=== PATIENT | female | born 1985 | race Caucasian/White ===

== ENCOUNTER 2020-08-14 05:52 | Day surgery (SDC) | payer BC, OTHER ==
[2020-08-14] VITALS (9 sets, daily range): BP systolic 96–122; BP diastolic 58–77
[~2020-08-14] VITALS: Ht 165.1 cm; Wt 59.0 kg
[2020-08-14] MEDS ORDERED: fentaNYL 100 mcg/2 mL IV PRN (06:30)
[2020-08-14] MEDS ORDERED: Atropine Inj 1mg/10ml Syr IVP PRN (06:30)
[2020-08-14] MEDS ORDERED: DiphenhydrAMINE 50mg/ml Inj IVP PRN (06:30)
[2020-08-14] MEDS ORDERED: Midazolam 2mg/2ml Inj IVP PRN (06:30)
[2020-08-14] MEDS ORDERED: LR 1000ml ONE (06:30)
[2020-08-14] MEDS ORDERED: Lidocaine 1% MPF 10mg/ml 5ml ONE (06:30)
[2020-08-14] MEDS ORDERED: LOESTRIN1 EAC1 PO (06:31)
[2020-08-14] MEDS ORDERED: SERTRALINE HCL50 MG ORAL (06:31)
[2020-08-14] MEDS ORDERED: OMEPRAZOLE40 M1 ORAL (06:31)
[2020-08-14] MEDS ORDERED: ATENOLOL25 MG ORAL (06:31)
[2020-08-14] MEDS ORDERED: BUSPAR10 MG ORAL (06:31)
--- NOTE | 2020-08-14 06:34 | Anethesia Preoperative Eval ---
Anesthesia Pre-op PMH/ROS General Date of Evaluation: Aug 14, 2020 Time of Evaluation: 06:32 Anesthesiologist: alan ASA Score: ASA 3 Mallampati Score Class I : Soft palate, uvula, fauces, pillars visible Class II: Soft palate, uvula, fauces visible Class III: Soft palate, base of uvula visible Class IV: Only hard plate visible Mallampati Classification: Class II Surgeon: lolis Diagnosis: gerd Surgical Procedure: egd Anesthesia History: none Social History: smoking - former Family History: no anesthesia problems Allergies: Coded Allergies: No Known Allergies (Unverified , 08/14/20) Medications: see eMAR Patient NPO?: Yes Past Medical History Cardiovascular: Reports: HTN, arrhythmia Gastrointestinal/Genitourinary: Reports: GERD, other - on bcp Neurologic/Psychiatric: Reports: depression/anxiety, other - hx/o seizures Anesthesia Pre-op Phys. Exam Physician Exam Last Vital Signs Date Time Temp Pulse Resp B/P (MAP) Pulse Ox O2 Delivery O2 Flow Rate FiO2 08/14/20 06:28 Room Air Constitutional: NAD Neurologic: CN 2-12 intact Cardiovascular: RRR Respiratory: CTA Gastrointestinal: S/NT/ND Airway Exam Mallampati Score: Class II MO: full Neck: flexible TMD: 2fb ROM: full Anesthesia Pre-op A/P Labs Microbiology Date/Time Source Procedure Growth Status 08/11/20 10:50 Nasopharynx SARS-CoV-2 RdRp Gene Assay - Final Complete Labs Test 08/14/20 06:15 Urine HCG, Qualitative Negative (NEGATIVE) Risk Assessment & Plan Assessment: asa3 Plan: mac Status Change Before Surgery: No Pre-Antibiotics Drug: Cathryn Luque MD Aug 14, 2020 06:34
--- NOTE | 2020-08-14 07:11 | Pre-Procedure Note/Attestation ---
Pre-Procedure Note/Attestation Complete Prior to Procedure Planned Procedure: not applicable Procedure Narrative: egd Indications for Procedure Pre-Operative Diagnosis: gerd Attestation I attest that I discussed the nature of the procedure; its benefits; risks and complications; and alternatives (and the risks and benefits of such alternatives), prior to the procedure, with the patient (or the patient's legal sales representative). I attest that, if there was a reasonable possibility of needing a blood transfusion, the patient (or the patient's legal sales representative) was given the [facility] standardized written summary, pursuant to the Derek Jacoby Blood Safety Act ([place] Health and Safety Code # 1645, as amended). I attest that I re-evaluated the patient just prior to the surgery and that there has been no change in the patient's H&P, except as documented below: Bill Oviedo MD Aug 14, 2020 07:11
--- NOTE | 2020-08-14 07:12 | Short Stay Surgery H&P ---
History of Present Illness History of Present Illness Chief Complaint see H&P HPI Pily Leidy Anderson is a 35 year old female who was admitted on for GERD Patient History Allergies: Coded Allergies: No Known Allergies (Unverified , 08/14/20) Medication History Scheduled Atenolol* (Tenormin*), 25 MG ORAL DAILY, (Reported) Buspirone Hcl* (Buspar*), 10 MG ORAL BID, (Reported) Norethindrone A-E Estradiol (Loestrin), 1 EACH PO DAILY, (Reported) Omeprazole (Omeprazole), 40 MG ORAL DAILY, (Reported) Sertraline Hcl* (Zoloft*), 50 MG ORAL DAILY, (Reported) Physical Exam Vital Signs Last Vital Signs Date Time Temp Pulse Resp B/P (MAP) Pulse Ox O2 Delivery O2 Flow Rate FiO2 08/14/20 06:36 97.8 68 18 122/71 99 Room Air Labs Laboratory Tests Test 08/14/20 06:15 Urine HCG, Qualitative Negative (NEGATIVE) Plan Attestation Are the patient's medical conditions optimized for surgery? Bill Oviedo MD Aug 14, 2020 07:12
--- NOTE | 2020-08-14 07:41 | Endoscopy Procedure Note ---
Endoscopy Procedure Note General Indication for Procedure: GERD Eructation Procedures Performed: EGD Operative Findings/Diagnosis: 1-2 cm HH, gastric polyps - one red, RND bx Specimen: yes Pt Tolerated Procedure Well: Yes Estimated Blood Loss: none Anesthesia Anesthesiologist: Jamal Geiger Anesthesia: MAC Medications Medication Given: see anesthesia record Inserted Devices Implant(s) used?: No GI Core Measures 50 yrs or older w/o bx or poly: Not Applicable 10yrs. F/U recommended: Not Applicable Bill Oviedo MD Aug 14, 2020 07:40
--- NOTE | 2020-08-14 07:42 | Brief Operative Note ---
Immediate Post Operative Note Operative Note Chief Complaint: Eructation, GERD Pre-op Diagnosis: gerd Procedure: EGD Post-op Diagnosis: HH, gastric polyps Surgeon: maranda Anesthesiologist: Jamal Geiger Anesthesia: MAC Specimen: yes Complications: none Condition: stable Fluids: per anesthesia Estimated Blood Loss: none Drains: none Implant(s) used?: No Bill Oviedo MD Aug 14, 2020 07:42
--- NOTE | 2020-08-14 09:18 | Immediate Post-Op Evaluation ---
Immediate Post-Op Evalulation Immediate Post-Op Evalulation Procedure: egd w/ bx Date of Evaluation: Aug 14, 2020 Time of Evaluation: 07:47 IV Fluids: 400ml lr Blood Products: none Estimated Blood Loss: negligible Blood Pressure Systolic: 97 Blood Pressure Diastolic: 59 Pulse Rate: 60 Respiratory Rate: 18 O2 Sat by Pulse Oximetry: 100 Temperature (Fahrenheit): 98.9 Pain Score (1-10): 0 Nausea: No Vomiting: No Complications none Patient Status: awake, reacts, patent Hydration Status: adequate Drug: Cathryn Luque MD Aug 14, 2020 09:18
--- NOTE | 2020-08-14 09:20 | 48 Hour Post Anesthesia Eval ---
Post Anesthesia Evaluation Procedure: egd w/ bx Date of Evaluation: Aug 14, 2020 Time of Evaluation: 07:49 Blood Pressure Systolic: 111 0: 67 Pulse Rate: 61 Respiratory Rate: 18 Temperature (Fahrenheit): 98.9 O2 Sat by Pulse Oximetry: 100 Airway: patent Nausea: No Vomiting: No Pain Intensity: 0 Hydration Status: adequate Cardiopulmonary Status: stable Mental Status/LOC: patient returned to baseline Post-Anesthesia Complications: none Follow-up care needed: N/A Cathryn Flynn MD Aug 14, 2020 09:20
--- NOTE | 2020-08-14 10:45 | Operative Note - Dictated ---
DATE OF OPERATION: 08/14/2020 GASTROENTEROLOGY PROCEDURE REPORT PROCEDURE: Upper gastrointestinal endoscopy with biopsy and snare polypectomy. SURGEON: Bill Oviedo MD. ANESTHESIA: Dr. Cathryn Celaya. PRE-ENDOSCOPIC DIAGNOSIS: Symptoms of gastroesophageal reflux. POST-ENDOSCOPIC DIAGNOSES: 1. Multiple small diminutive polyps throughout the stomach, typical of fundic gland polyps, status post sampling of 4. 2. One 4 to 5 mm red colored polyp in the cardia of the stomach, which was removed with a hot snare polypectomy. 3. Status post random biopsies of the duodenum, lower esophagus, and mid esophagus. 4. No evidence of ulcerations identified. PROCEDURE IN DETAIL: The procedure, its risks, indications, alternatives, and possible complications including but not limited to bleeding, infection, perforation, , and anesthesia complications were explained to the patient and informed consent was obtained. The patient was then sedated in the left lateral decubitus position. A diagnostic upper endoscope was introduced into oropharynx and advanced to the duodenum without difficulty. The endoscope was then gradually withdrawn and mucosa examined carefully. Examination of the upper gastrointestinal mucosa revealed multiple diminutive gastric polyps, which were the same color as the gastric mucosa and with typical appearance for fundic gland polyps. Four of these were sampled and sent in the same bottle for review. Random biopsies of the duodenum was all sent to pathology for review. There was a 1 to 2 cm hiatal hernia seen. Above this, there was no obvious evidence of esophagitis. Random biopsies of the lower esophagus and mid esophagus were sent to pathology for review. There was a 4 to 5 mm polyp, which looked different than the other polyps and this was located in the cardia of the stomach, sent to pathology for review. There was a single polyp measuring about 4 to 5 mm, which was red in color and looked different than the other polyps. This was in the cardia of the stomach and was removed with a hot snare polypectomy without the difficulty. There was also 1 to 2 cm hiatal hernia, but above it there was no esophagitis by visual criteria. Biopsies of the lower esophagus and mid esophagus were sent to pathology for review. The patient was sent to Recovery in good condition. COMPLICATIONS: None. ASSESSMENT: This examination was notable for multiple diminutive polyps, which are typically seen in patients receiving long-term proton pump inhibitor. There is a single polyp in the cardia appeared different and this will be examined separately. The hiatal hernia may have a role in the patient's frequent eructation and this will be explained to the patient on followup. RECOMMENDATIONS: 1. Follow up biopsy results. 2. Continue current medications. 3. Outpatient followup. Thank you for asking me to participate in the care of this patient. Bill Oviedo M.D. DR: CLINT JOB#: [id number] CC: Tulio Smith M.D. ; FAX#: [phone]
== END 2020-08-14 08:40 | disposition home or self-care (01) ==
LOC: GAS 05:52
DX: K21.0 Gastro-esophageal reflux disease with esophagitis (principal); K31.7 Polyp of stomach and duodenum; K44.9 Diaphragmatic hernia without obstruction or gangrene; Z87.891 Personal history of nicotine dependence; I10 Essential (primary) hypertension; F32.9 Major depressive disorder, single episode, unspecified; F41.9 Anxiety disorder, unspecified; D21.4 Benign neoplasm of connective and other soft tissue of abdomen; K22.8 Other specified diseases of esophagus
CPT/HCPCS: 43239; 43251; 81025; 94003; J2704; J7120; U0002; 94150